=== PATIENT | female | born 1945 | race Caucasian/White ===

== ENCOUNTER 2021-02-25 09:43 | Emergency (ER) | payer MEDICARE, SELFPAY ==
--- NOTE | 2021-02-25 09:49 | ED.GENADULT ---
HPI - General Adult General Chief complaint: Urogenital-Female Stated complaint: itchy vaginal area Source: patient Mode of arrival: ambulatory Limitations: no limitations History of Present Illness HPI narrative: Patient is a 75-year-old female who presents to the [facility] via POV for evaluation of a vaginal problem that has been present for 6 days. Additionally, she reports vaginal itching and edema. No relief with [id number] antifungal or Neosporin. Urinating worsens symptoms. She states she has a history of this problem years ago although is unable to recall the diagnosis. She was prescribed clotrimazole at that time which resolved symptoms. Related Data Home Medications Medication Instructions Recorded Confirmed gabapentin 300 mg capsule 300 mg PO BID 12/31/19 02/06/21 cholecalciferol (vitamin D3) 50 50 mcg PO DAILY 02/06/21 02/06/21 mcg (2,000 unit) capsule losartan 100 mg tablet 25 mg PO DAILY tablet 02/06/21 02/06/21 mecobalamin (vitamin B12) 1,000 1,000 mcg PO DAILY 02/06/21 02/06/21 mcg chewable tablet Allergies Allergy/AdvReac Type Severity Reaction Status Date / Time lidocaine Allergy Severe HIVES Verified 02/25/21 10:10 Cephalosporins Allergy Intermediate NAUSEA Verified 02/25/21 10:10 clarithromycin Allergy Intermediate Unknown Verified 02/25/21 10:10 TRIP Inhibitors Allergy Unknown Unknown Verified 02/25/21 10:10 cephalexin Allergy Unknown Unknown Verified 02/25/21 10:10 diclofenac Allergy Unknown NAUSEA Verified 02/25/21 10:10 penicillin G Allergy Unknown Unknown Verified 02/25/21 10:10 Penicillins Allergy Unknown Unknown Verified 02/25/21 10:10 Review of Systems Review of Systems: Pertinent negatives: fever, chills, sweats, change in appetite, poor p.o. intake, malaise, recent weight loss, myalgias, lymphadenopathy, headache, dizziness, STD exposure, painful intercourse, abdominal pain, constipation, nausea, vomiting, diarrhea, abdominal cramping, dysuria, hematuria, urinary frequency/urgency, back pain, urinary incontinence, cloudy urine, vaginal bleeding/discharge, shortness of breath, chest pain, and heart palpitations/murmurs. [facility] Past Medical History Medical History (Updated 02/25/21 @ 10:19 by Oz Greene, GEAR LAPPING MACHINE OPERATOR, BC) Acute maxillary sinusitis Adult hypothyroidism Anxiety Chronic left shoulder pain Essential (primary) hypertension GERD (gastroesophageal reflux disease) History of skin cancer Hypocalcemia Microcytic anemia Mixed hyperlipidemia Obesity (BMI 30-39.9) VINITA on CPAP Other iron deficiency anemias Skin cancer Thrombocytopenia Type 2 diabetes mellitus without complication, without long-term current use of insulin Surgical History Surgical History History of dilatation and curettage History of knee replacement Family History Family History Father Family history of malignant neoplasm Mother Family history of pancreatic cancer Social History Social History (Updated 02/06/21 @ 07:32 by Em Billingsley MA) Smoking status: Never smoker Second hand tobacco smoke exposure: No Alcohol intake: never Substance use: never Comments I have reviewed and agree with the patient's past medical, surgical, social, and family hx as documented by the RN. There is no relevant family history pertinent to the presenting complaint. Exam Narrative: GENERAL: Well-appearing, well-nourished, and in no acute distress. HEAD: Normocephalic, atraumatic. NECK: Supple. No lymphadenopathy or nuchal rigidity. CHEST: Lung sounds are clear to auscultation in bilateral lung bardales. No respiratory distress. HEART: Regular rate and rhythm. No murmur, gallop, or rub heard. ABDOMEN: Soft, non-tender, non-distended, normal active bowel sounds in all quadrants. No guarding. No rebound tenderness. No pulsatile or palpable abdominal mass(es). No CVAT : Bladder n
[2021-02-25 09:53] VITALS: BP 141/55; PULSE 70; RESP 16; TEMP 36.6; O2SAT 99
== END 2021-02-25 10:30 | disposition home or self-care (01) ==
PROVIDERS: Emergency Provider Nurse Practitioner Family; PCP Internal Medicine
DX: N76.0 Acute vaginitis (principal); E03.9 Hypothyroidism, unspecified; I10 Essential (primary) hypertension; K21.9 Gastro-esophageal reflux disease without esophagitis; E78.2 Mixed hyperlipidemia; E66.9 Obesity, unspecified; Z68.35 Body mass index [BMI] 35.0-35.9, adult; G47.33 Obstructive sleep apnea (adult) (pediatric); E11.9 Type 2 diabetes mellitus without complications; Z79.4 Long term (current) use of insulin; Z85.828 Personal history of other malignant neoplasm of skin; Z96.659 Presence of unspecified artificial knee joint
CPT/HCPCS: 99213; G0463

== ENCOUNTER 2021-04-19 22:52 | Emergency (ER) | payer MEDICARE, SELFPAY ==
[2021-04-19 23:02] VITALS: BP 153/65; PULSE 61; RESP 20; TEMP 36.3; O2SAT 100
--- NOTE | 2021-04-20 00:21 | PC.NURSE ---
Pt to INTAKE desk and states she no longer wants to be seen due to wait time. Pt states she would call her PCP in the AM for an eval. Pt to car in no distress.
== END 2021-04-20 04:27 | disposition left against medical advice (07) ==
PROVIDERS: PCP Internal Medicine
DX: Z53.21 Procedure and treatment not carried out due to patient leaving prior to being seen by health care provider (principal)
CPT/HCPCS: 99199

== ENCOUNTER → 2022-02-20 13:44 | Outpatient (CLI) | payer MEDICARE, SELFPAY ==
--- NOTE | ~2022-02-20 | DEXA_ITS ---
Bone Density Report Name: VU CENTENO Age: 76 Sex: Female Ethnicity: White Date of : 1945 Indication: postmenopausal; screening for osteoporosis; height loss; Referring Provider: EDWINA, WILDA Tilley Study: Bone densitometry was performed. Exam Date: February 20, 2022 Accession number: [id number] Bone Density: Region BMD T-score Z-score Classification AP Spine (L1-L4) 1.142 0.9 3.4 Normal Femoral Neck (Left) 0.709 -1.3 0.9 Osteopenia Total Hip (Left) 0.924 -0.1 1.8 Normal Femoral Neck (Right) 0.722 -1.1 1.0 Osteopenia Total Hip (Right) 0.936 0.0 1.9 Normal Total Hip Mean 0.930 -0.1 1.9 Normal World Health Organization criteria for BMD impression classify patients as: Normal (T-score at or above -1.0), Osteopenia (T-score between -1.0 and -2.5), or Osteoporosis (T-score at or below -2.5). 10-year Fracture Risk(1): Major Osteoporotic Fracture 10% Hip Fracture 1.9% Reported Risk Factors: [place] (), Neck BMD=0.709, BMI=36.0 (1) FRAX(R) Version 3.08. Fracture probability calculated for an untreated patient. Fracture probability may be lower if the patient has received treatment. Clinical Information Provided by Patient: Has used the following medications: Vitamin D Patient maximum height was 65 Menopause Age: 49 Onset of menses at age 12 Number of children 1 Impression: The patient has low bone mass, based on the Left Femoral Neck T-score. The patient has an estimated ten-year risk of hip fracture of 1.9% and an estimated ten-year risk of major fracture of 10%, based on the WHO FRAX algorithm. Discussion: BONE DENSITY IS LOW AT ONE OR MORE SKELETAL SITES. This patient's lowest T-score is low at one or more skeletal sites. It meets the World Health Organization's (WHO) criteria for ?low bone mass? (T-score between -1.0 and -2.5). The patient's 10-year risk of fracture as calculated by FRAX is less than the threshold where pharmacological therapy is recommended by the National Osteoporosis Foundation (NOF). However, all treatment decisions require clinical judgment and consideration of individual patient factors, including patient preferences, comorbidities, previous drug use, risk factors not captured in the FRAX model (e.g., frailty, falls, vitamin D deficiency, increased bone turnover, interval significant decline in bone density) and possible under or overestimation of fracture risk by FRAX. The patient should follow a healthful lifestyle (good nutrition with adequate calcium and vitamin D, and appropriate weight-bearing exercise). Follow-Up: Consider repeating this study in 2 to 3 years to reassess this patient's status, or sooner if there is some new clinical indication. Reported by: [facility] on 02/20/2022 2:00:00 PM.
== END ==
PROVIDERS: PCP Hospitalist; Visit Provider Hospitalist
DX: Z78.0 Asymptomatic menopausal state (principal); M85.852 Other specified disorders of bone density and structure, left thigh; M85.851 Other specified disorders of bone density and structure, right thigh
CPT/HCPCS: 77080

== ENCOUNTER 2022-07-20 11:19 | Emergency (ER) | payer MEDICARE, SELFPAY ==
[2022-07-20 11:32] VITALS: BP 138/60; PULSE 70; RESP 14; TEMP 36.6; O2SAT 98
--- NOTE | 2022-07-20 12:14 | ED.NECK ---
HPI - Neck Pain/Injury General Chief Complaint: Neck Pain/Injury Stated Complaint: Neck Pain Time Seen by Provider: 07/20/22 11:40 Source: patient Mode of arrival: ambulatory Limitations: no limitations History of Present Illness HPI Narrative: Rissa is a 76-year-old female patient presenting to the clinic today with complaints of neck pain x1 week. She reports she has been taking some Tylenol, oxycodone as needed for pain as well as putting he in ice on the area. No known injury. Does have a history of arthritis in her neck as well as some stenosis. She denies any radiation of pain down her arms. Related Data Home Medications Medication Instructions Recorded Confirmed gabapentin 300 mg capsule 300 mg PO BID 12/31/19 07/20/22 cholecalciferol (vitamin D3) 50 50 mcg PO DAILY 02/06/21 07/20/22 mcg (2,000 unit) capsule losartan 100 mg tablet 25 mg PO DAILY 02/06/21 07/20/22 mecobalamin (vitamin B12) 1,000 1,000 mcg PO DAILY 02/06/21 07/20/22 mcg chewable tablet Allergies Allergy/AdvReac Type Severity Reaction Status Date / Time lidocaine Allergy Severe HIVES Verified 07/20/22 11:23 Cephalosporins Allergy Intermediate NAUSEA Verified 07/20/22 11:23 clarithromycin Allergy Intermediate Unknown Verified 07/20/22 11:23 TRIP Inhibitors Allergy Unknown Unknown Verified 07/20/22 11:23 cephalexin Allergy Unknown Unknown Verified 07/20/22 11:23 diclofenac Allergy Unknown NAUSEA Verified 07/20/22 11:23 penicillin G Allergy Unknown Unknown Verified 07/20/22 11:23 Penicillins Allergy Unknown Unknown Verified 07/20/22 11:23 Review of Systems Review of Systems: Pertinent positives per HPI. Patient denies any fever, chills, rash, headache, visual changes, dizziness, cough, runny nose, sore throat, shortness of breath, chest pain, palpitations, nausea, vomiting, diarrhea, constipation, abdominal pain, or any urinary issues. [facility] Past Medical History Medical History Acute maxillary sinusitis Adult hypothyroidism Anxiety Chronic left shoulder pain Essential (primary) hypertension GERD (gastroesophageal reflux disease) History of skin cancer Hypocalcemia Microcytic anemia Mixed hyperlipidemia Obesity (BMI 30-39.9) VINITA on CPAP Other iron deficiency anemias Skin cancer Thrombocytopenia Type 2 diabetes mellitus without complication, without long-term current use of insulin Surgical History Surgical History History of dilatation and curettage History of knee replacement Family History Family History Father Family history of malignant neoplasm Mother Family history of pancreatic cancer Social History Social History Second hand tobacco smoke exposure: No Alcohol intake: never Substance use: never Substance use type: does not use Comments At the time of my signature, I reviewed and agree with the nursing past medical, surgical, social, and family history. There is no relevant family history pertinent to the patient complaint. Exam Narrative: General: Well-developed, well nourished, in no apparent distress Head: Normocephalic, atraumatic. Cardio: Regular rate and rhythm, s1 and s2 normal, no murmur appreciated. Resp: Clear to auscultation bilaterally, no rhonchi, rales, wheezing or rubs. Musculoskeletal: No deformity, tender to palpation over bilateral posterior cervical trapezius musculature, pain with turning head side to side against resistance, no radiation of pain down the arms, hand grasp strong and equal, muscle strength strong and equal, peripheral pulse strong, no edema, no cyanosis, normal gait and station Course Course Emergency Course: Portions of this record may have been created with voice recognition software. Level of Care: Express Care Visit Vital
== END 2022-07-20 12:28 | disposition home or self-care (01) ==
PROVIDERS: Emergency Provider Nurse Practitioner Family; PCP Hospitalist
DX: S16.1XXA Strain of muscle, fascia and tendon at neck level, initial encounter (principal); X58.XXXA Exposure to other specified factors, initial encounter; E03.9 Hypothyroidism, unspecified; I10 Essential (primary) hypertension; K21.9 Gastro-esophageal reflux disease without esophagitis; E78.2 Mixed hyperlipidemia; G47.33 Obstructive sleep apnea (adult) (pediatric); E11.9 Type 2 diabetes mellitus without complications; Z08 Encounter for follow-up examination after completed treatment for malignant neoplasm; Z85.828 Personal history of other malignant neoplasm of skin
CPT/HCPCS: 99213; G0463

== ENCOUNTER 2023-07-28 12:10 | Outpatient (CLI) | payer MEDICARE, SELFPAY ==
--- NOTE | ~2023-07-28 | MM_ITS ---
EXAMINATION: MM screening jesús BI w gabriel HISTORY: Screening mammogram TECHNIQUE: Craniocaudal and mediolateral oblique 3-D tomosynthesis images were obtained and synthetic 2-D images were generated. CAD analysis was submitted and interpreted. COMPARISON: No prior mammogram is available for comparison at this institution. BREAST PARENCHYMAL COMPOSITION: There are scattered areas of fibroglandular density. FINDINGS: Scattered bilateral benign calcifications. There is no evidence of suspicious mass, calcifi cation, or architectural distortion to suggest malignancy in either breast. IMPRESSION: 1. No mammographic evidence of malignancy. 2. Recommend routine screening mammography in one year. BI-RADS Category 2: Benign finding(s). Reviewed, dictated and finalized at location A.
== END 2023-07-28 12:11 ==
LOC: MICIMG 12:12
PROVIDERS: PCP Hospitalist; Visit Provider Hospitalist
DX: Z12.31 Encounter for screening mammogram for malignant neoplasm of breast (principal)
CPT/HCPCS: 77063; 77067

== ENCOUNTER 2024-10-19 12:50 | Outpatient (CLI) | payer MEDICARE, SELFPAY ==
--- NOTE | ~2024-10-19 | MM_ITS ---
EXAMINATION: MM screening jesús BI w gabriel HISTORY: Screening mammogram TECHNIQUE: Craniocaudal and mediolateral oblique 3-D tomosynthesis images were obtained and synthetic 2-D images were generated. CAD analysis was submitted and interpreted. COMPARISON: 07/28/2023 BREAST PARENCHYMAL COMPOSITION: There are scattered areas of fibroglandular density. FINDINGS: Scattered benign-appearing calcifications are present. No suspicious mass, calcification, o r architectural distortion are identified in either breast to suggest malignancy. IMPRESSION: 1. No mammographic evidence of malignancy. 2. Recommend routine screening mammography in one year. BI-RADS Category 2: Benign finding(s). Reviewed, dictated and finalized at location B.
== END 2024-10-19 12:51 | disposition home or self-care (01) ==
PROVIDERS: PCP Hospitalist; Visit Provider Hospitalist
DX: Z12.31 Encounter for screening mammogram for malignant neoplasm of breast (principal)
CPT/HCPCS: 77063; 77067